=== PATIENT | male | born 1985 | race Caucasian/White ===

== ENCOUNTER → 2016-08-17 | Outpatient (CLI) | payer OTHER | LOC: COL.RAD 07:30 | DX: M50.023 Cervical disc disorder at C6-C7 level with myelopathy (principal); M25.78 Osteophyte, vertebrae ==

== ENCOUNTER → 2016-08-22 | Outpatient (CLI) | payer OTHER | LOC: MHCPAIN 11:52 | DX: G89.29 Other chronic pain (principal); M50.123 Cervical disc disorder at C6-C7 level with radiculopathy; F17.220 Nicotine dependence, chewing tobacco, uncomplicated | CPT/HCPCS: G0463 ==

== ENCOUNTER → 2016-08-24 | Outpatient (CLI) | payer OTHER | LOC: MHCPAIN 12:58 | DX: M50.10 Cervical disc disorder with radiculopathy, unspecified cervical region (principal) | CPT/HCPCS: J1100; Q9967 ==

== ENCOUNTER → 2016-09-26 | Outpatient (CLI) | payer OTHER | LOC: MHCPAIN 08:06 | DX: G89.29 Other chronic pain (principal); M50.10 Cervical disc disorder with radiculopathy, unspecified cervical region | CPT/HCPCS: G0463 ==

== ENCOUNTER → 2017-10-31 | Outpatient (CLI) | payer OTHER | LOC: MHCPAIN 08:55 | DX: G89.29 Other chronic pain (principal); M50.90 Cervical disc disorder, unspecified, unspecified cervical region; M54.12 Radiculopathy, cervical region | CPT/HCPCS: G0463 ==

== ENCOUNTER → 2020-09-28 | Outpatient (CLI) | payer BC | LOC: MHCPAIN 08:43 | DX: M47.812 Spondylosis without myelopathy or radiculopathy, cervical region (principal); M54.2 Cervicalgia; G89.29 Other chronic pain | CPT/HCPCS: G0463 ==

== ENCOUNTER → 2020-09-30 | Outpatient (CLI) | payer BC | LOC: MHCPAIN 08:03 | DX: M47.812 Spondylosis without myelopathy or radiculopathy, cervical region (principal); M54.12 Radiculopathy, cervical region | CPT/HCPCS: J1100; Q9967 ==

== ENCOUNTER → 2020-10-06 | Outpatient (CLI) | payer BC | LOC: MHCPAIN 08:15 | DX: M47.812 Spondylosis without myelopathy or radiculopathy, cervical region (principal); M54.2 Cervicalgia; G89.29 Other chronic pain | CPT/HCPCS: G0463 ==

== ENCOUNTER → 2021-03-22 | Outpatient (CLI) | payer BC | LOC: MHCPAIN 14:55 | DX: M47.812 Spondylosis without myelopathy or radiculopathy, cervical region (principal); M54.12 Radiculopathy, cervical region; G89.29 Other chronic pain | CPT/HCPCS: G0463 ==

== ENCOUNTER → 2021-03-24 | Outpatient (CLI) | payer BC | LOC: MHCPAIN 09:15 | DX: M47.812 Spondylosis without myelopathy or radiculopathy, cervical region (principal); M54.12 Radiculopathy, cervical region | CPT/HCPCS: J1100; Q9967 ==

== ENCOUNTER → 2021-04-05 | Outpatient (CLI) | payer BC | LOC: MHCPAIN 14:18 | DX: M47.812 Spondylosis without myelopathy or radiculopathy, cervical region (principal); M54.12 Radiculopathy, cervical region | CPT/HCPCS: G0463 ==

== ENCOUNTER → 2021-04-20 | Outpatient (CLI) | payer BC | LOC: MHCPAIN 10:57 | DX: M47.812 Spondylosis without myelopathy or radiculopathy, cervical region (principal); M54.12 Radiculopathy, cervical region | CPT/HCPCS: J1100; Q9967 ==

== ENCOUNTER → 2021-05-04 | Outpatient (CLI) | payer BC | LOC: MHCPAIN 08:02 | DX: M47.812 Spondylosis without myelopathy or radiculopathy, cervical region (principal); M54.2 Cervicalgia | CPT/HCPCS: G0463 ==

== ENCOUNTER → 2022-04-05 | Outpatient (CLI) | payer BC | LOC: MHCPAIN 10:05 | DX: M47.892 Other spondylosis, cervical region (principal); M54.12 Radiculopathy, cervical region | CPT/HCPCS: G0463 ==